=== PATIENT | male | born 1995 | race African-American/Black ===

== ENCOUNTER 2020-11-13 08:46 | Outpatient (CLI) | payer OTHER ==
[~2020-11-13] VITALS: Ht 182.9 cm; Wt 101.2 kg
== END 2020-11-13 23:00 | disposition home or self-care (01) ==
LOC: INF 08:46
PROVIDERS: ATTEND Family Medicine
DX: Z23 Encounter for immunization (principal); Z20.828 Contact with and (suspected) exposure to other viral communicable diseases; U07.1 COVID-19
CPT/HCPCS: 96365; M0244